=== PATIENT | male | born 1945 | race Caucasian/White ===

== ENCOUNTER → 2018-05-04 | Outpatient (CLI) | payer MEDICARE, BC ==
[~2018-05-04] MED LIST: ASPI-496 PO; CHOL3000 PO; HYDR25TA6 PO
[2018-05-04 12:23] LABS: ALBUMIN 3.7 g/dL (3.4-5.0); ANION GAP 6 mmol/L (5-15); CHLORIDE 105 mmol/L (98-107)
[2018-05-04 12:27] LABS: ALANINE AMINOTRANSFERASE 27 U/L (12-78); ALKALINE PHOSPHATASE 58 U/L (45-117); BILIRUBIN,TOTAL 0.4 mg/dL (0.2-1.0); CREATININE 1.17 mg/dL (0.7-1.3); TOTAL PROTEIN 7.5 g/dL (6.4-8.2)
== END | disposition home or self-care (01) ==
LOC: STAR 10:55
PROVIDERS: ATTEND Surgery
DX: Z01.818 Encounter for other preprocedural examination (principal); K40.90 Unilateral inguinal hernia, without obstruction or gangrene, not specified as recurrent; K42.9 Umbilical hernia without obstruction or gangrene
CPT/HCPCS: 36415; 80053; 93005

== ENCOUNTER 2018-05-08 09:09 | Day surgery (SDC) | payer MEDICARE, BC ==
[2018-05-04 12:58] VITALS: BP 157/84
[~2018-05-08] VITALS: Ht 170.2 cm; Wt 77.7 kg
[2018-05-08] MEDS ORDERED: MIDAZOLAM 1 MG/ML, 2ML ONE (09:10)
[2018-05-08] MEDS ORDERED: FENTANYL PF 250 MCG/5ML ONE (09:10)
[2018-05-08] MEDS ORDERED: PROPOFOL 10 MG/ML, 20ML ONE (09:11)
[2018-05-08] MEDS ORDERED: NEOSTIGMINE 1 MG/ML, 10ML ONE (09:12)
[2018-05-08] MEDS ORDERED: ROCURONIUM 10MG/ML,5ML ONE (09:12)
[2018-05-08] MEDS ORDERED: GLYCOPYRROLATE 0.4 MG/2 ML, 2ML ONE (09:12)
[2018-05-08] MEDS ORDERED: WATER-INJECTION,STERILE 10 ML IV ONE (09:13)
[2018-05-08] MEDS ORDERED: CEFAZOLIN 1,000 MG ONE ×2 (09:13)
[2018-05-08] MEDS ORDERED: ACETAMINOPHEN 500 MG TABLET PO ONE (09:30)
[2018-05-08] MEDS ORDERED: OxyconTIN ER 10 MG TAB.ER PO ONE (09:30)
[2018-05-08] MEDS ORDERED: GABAPENTIN 300 MG CAPSULE PO ONE (09:30)
[2018-05-08] MEDS ORDERED: LACTATED RINGERS 1,000 ML IV SCH (09:31)
[2018-05-08] MEDS ORDERED: LIDOCAINE-MPF 1%, 2ML INFIL ONE (10:00)
[2018-05-08] MEDS ORDERED: BUPIVACAINE/PF 0.5% ONE (10:56)
[2018-05-08] MEDS ORDERED: EPINEPHRINE 1 MG/ML, 1ML ONE (10:56)
[2018-05-08] MEDS ORDERED: HYDROmorphone 1 MG/ML, 1ML IV PRN (11:00)
[2018-05-08] MEDS ORDERED: ONDANSETRON 2MG/ML, 2ML IV PRN (11:00)
[2018-05-08] MEDS ORDERED: hydrALAzine 20 MG/ML, 1ML IV PRN (11:00)
[2018-05-08] MEDS ORDERED: PROMETHAZINE 25 MG/ML, 1ML IV PRN (11:00)
[2018-05-08] MEDS ORDERED: PROMETHAZINE 12.5 MG SUPP PR PRN (11:00)
[2018-05-08] MEDS ORDERED: MEPERIDINE/PF 25MG/0.5ML IVPush PRN (11:00)
[2018-05-08] MEDS ORDERED: LABETALOL 5MG/ML, 20ML IV PRN (11:00)
[2018-05-08] MEDS ORDERED: ONDANSETRON ODT 8 MG PO PRN (11:00)
[2018-05-08] MEDS ORDERED: MORPHINE SULFATE 4 MG/ML, 1ML IVPush PRN (11:00)
[2018-05-08] MEDS ORDERED: OXYcodone 5 MG/5 ML ORAL.SOL UDC PO PRN (11:00)
[2018-05-08] MEDS ORDERED: FENTANYL PF 100 MCG/2ML IV PRN (11:00)
[2018-05-08] MEDS ORDERED: PROMETHAZINE 25 MG SUPP PR PRN (11:00)
[2018-05-08] MEDS ORDERED: FENTANYL PF 100 MCG/2ML ONE (13:28)
[2018-05-08] MEDS ORDERED: OXYcodone 5 MG/5 ML ORAL.SOL UDC ONE (13:35)
== END 2018-05-08 18:06 | disposition home or self-care (01) ==
LOC: OUT 09:09
PROVIDERS: ATTEND Surgery
DX: K40.90 Unilateral inguinal hernia, without obstruction or gangrene, not specified as recurrent (principal); K42.9 Umbilical hernia without obstruction or gangrene; F17.210 Nicotine dependence, cigarettes, uncomplicated; I10 Essential (primary) hypertension; E78.5 Hyperlipidemia, unspecified; Z85.46 Personal history of malignant neoplasm of prostate; Z98.890 Other specified postprocedural states; Z79.899 Other long term (current) drug therapy; Z72.89 Other problems related to lifestyle; Z79.82 Long term (current) use of aspirin; Z91.048 Other nonmedicinal substance allergy status
CPT/HCPCS: 49585; 49650; C1781; J0171; J0690; J2250; J2704; J2710; J3010; J3490; J7120; S2900